=== PATIENT | female | born 1965 | race Caucasian/White ===

== ENCOUNTER 2019-02-24 11:57 | Emergency (ER) | payer SELFPAY ==
[2019-02-24] MEDS ORDERED: HYDROcodone/Acetaminophen 10/325 mg Tablet ONE (13:15)
== END 2019-02-24 13:30 | disposition home or self-care (01) ==
LOC: ERS 11:57
DX: K03.81 Cracked tooth (principal); F17.210 Nicotine dependence, cigarettes, uncomplicated; E05.00 Thyrotoxicosis with diffuse goiter without thyrotoxic crisis or storm; Z71.6 Tobacco abuse counseling
CPT/HCPCS: 99406

== ENCOUNTER 2019-10-21 15:58 | Inpatient (IN) | payer OTHER ==
--- NOTE | 2019-10-21 17:38 | RAD ---
Exam: Chest one view HISTORY:Cough. Dyspnea. Comparison: None. FINDINGS: Cardiac silhouette: Normal Aorta: Unremarkable Pulmonary vessels: Normal Costophrenic angles: Clear LUNGS: No masses or consolidation. Pneumothorax: None Osseous abnormalities: None IMPRESSION: No acute cardiopulmonary process.
--- NOTE | 2019-10-21 17:38 | RAD ---
Exam: 2V soft tissue neck HISTORY: Swelling to thyroid x3 days. FINDINGS: No prevertebral soft tissue swelling. Epiglottis has a normal caliber. Aerodigestive tract appears patent. IMPRESSION: Unremarkable 2 view soft tissue neck Transcribed Date/Time: 10/21/2019 5:49 PM
[2019-10-21 17:51] LABS: #Basophils 0.1 thou/uL (0.0-0.2); #Lymphocytes 2.6 thou/uL (1.20-3.40); #Monocytes 0.6 thou/uL (0.11-0.59); #Neutrophils 3.6 thou/uL (1.40-6.50); %Basophils 1.1 % (0.0-1.0); %Eosinophils 0.1 % (0.0-10.0); %Lymphocytes 37.6 % (21.0-51.0); %Monocytes 8.3 % (0.0-10.0); %Neutrophils 52.8 % (42.0-75.0); Hemoglobin 13.5 g/dL (12.0-16.0); Mean Corpuscular HGB CONC 34.2 g/dL (32.0-36.0); Mean Corpuscular Hemoglobin 28.4 pg (27.0-31.0); Mean Corpuscular Volume 83.1 fL (78.0-98.0); Mean Platelet Volume 8.1 fL (7.4-10.4); Platelet Count 238 thou/uL (130-400); Red Blood Cell (RBC) Count 4.74 mill/uL (4.20-5.40); White Blood Cell (WBC) Count 6.8 thou/uL (4.8-10.8)
[2019-10-21 18:18] LABS: ALT (SGPT) 15 U/L (8-55); AST (SGOT) 15 U/L (5-34); Alkaline Phosphatase 93 U/L (40-110); Anion Gap 10 mmol/L (10-20); BUN (Urea Nitrogen) 16 mg/dL (9.8-20.1); Bilirubin, Total 0.2 mg/dL (0.2-1.2); Calc. Creatinine Clearance 0 mL/min (70-130); Carbon Dioxide 25 mmol/L (22-29); Chloride 108 mmol/L (98-107); Estimated GFR-MDRD Greater than 90; Globulin 2.8 g/dL (2.4-3.5); Glucose 128 mg/dL (70-105); Protein, Total 6.8 g/dL (6.0-8.3); Sodium 139 mmol/L (136-145)
[2019-10-21 18:55] LABS: Free T4 (Free Thyroxine) 1.65 ng/dL (0.70-1.48)
[2019-10-21 20:58] LABS: Bilirubin Negative (Negative); Blood, Urine Negative (Negative); Clarity Clear (Clear); Glucose, Urine (Dipstick) Normal (Negative); Leukocyte Negative Leu/uL (Negative); Nitrite Negative (Negative); Protein, Urine (Dipstick) Negative (Neg-Trace); Urobilinogen Normal mg/dL (Less than 2)
[2019-10-21] MEDS ORDERED: Methimazole 10 MG TAB PO SCH (21:15)
[2019-10-21] MEDS ORDERED: Propranolol 60 MG TAB PO SCH (21:15)
[2019-10-21 21:56] LABS: Troponin I 0.019 ng/mL (< 0.028)
[2019-10-22 01:39] LABS: Troponin I Less than 0.010 ng/mL (< 0.028)
[2019-10-22] MEDS: Methimazole 5 MG TAB PO SCH ×2 (05:36→15:38)
[2019-10-22 07:37] VITALS: BMI 27.8
[2019-10-22] MEDS ORDERED: Acetaminophen 325 MG TAB PO PRN (08:39)
[2019-10-22] MEDS ORDERED: Lorazepam 0.5 MG TAB PO PRN (08:42)
[2019-10-22] MEDS ORDERED: Methimazole 10 MG TAB PO SCH (09:00)
[2019-10-22] MEDS ORDERED: Carvedilol 6.25 MG TAB PO SCH (09:00)
--- NOTE | 2019-10-22 10:27 | HP ---
CHIEF COMPLAINT: Shortness of breath, cough, and vomiting. HISTORY OF PRESENT ILLNESS: This patient is a 54-year-old female who was diagnosed with Graves disease about 2 years ago. She has been following with Dr. Mcclendon as an outpatient. She was originally placed on methimazole. She has had a number of associated issues with hyperthyroidism including weight loss, heat intolerance, diarrhea, and such. The patient was supposed to have radioactive iodine ablation. However, when the methimazole was discontinued, she was only able to tolerate it for a few days because she started feeling more "amped up" with some increased anxiety and felt like the thyroid was swelling and causing her more difficulties. Therefore, she went back on the methimazole under the direction of Dr. Mcclendon and the plans for radioactive iodine were aborted. The patient has been back on the methimazole for about a [id number]-i-half. Yesterday, the patient started having some increased cough which has been present for about 3 days total. She was having some production of clear sputum that was causing some irritation of her throat and her thyroid and that ultimately led to some vomiting and she says that her insisted that she come to the emergency department. In the ER, the patient received an additional dose of methimazole and 60 mg of propranolol, which did seem to improve her symptoms significantly. The patient's pulse initially was at 119. The patient states that she much prefers the propranolol over the Coreg that she takes on a more regular basis. She indicates that she does not like taking the Coreg because she believes it is causing some leg cramps. REVIEW OF SYSTEMS: As noted above, the patient has had some difficulties with sleep. She has had some lower extremity cramping, some diarrhea, palpitations, cough, and associated shortness of breath. She has had clear sputum production, nothing discolored. She does have some anxiety with a known history of anxiety disorder. She admits it is difficult to differentiate symptoms from hyperthyroidism and her anxiety at times. PAST MEDICAL HISTORY: History of the hyperthyroidism and Graves disease diagnosed in 2018 at which time she apparently had some thyroid storm and she had takotsubo cardiomyopathy in 2019. PAST SURGICAL HISTORY: , tonsillectomy and benign tumor removed between T3 and T4. FAMILY HISTORY: Father had some type of renal cancer, at 42. Her mother had congestive heart failure and at 62. 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 She smokes at least half a pack of cigarettes per day. Denies alcohol. Denies drugs. She is . She is a DNAR and her Ken Carrero would be her surrogate decision maker should that be necessary. ALLERGIES: PENICILLIN CAUSES ANAPHYLAXIS. MORPHINE, BUT SHE DOES NOT KNOW THE REACTION TO THAT. SHE WAS APPARENTLY IN AN AMBULANCE, AT SOME POINT RECEIVED MORPHINE AND WAS TOLD SHE SHOULD NEVER TAKE IT AGAIN. CURRENT MEDICATIONS: 1. Coreg 6.25 mg b.i.d. 2. Methimazole 20 mg b.i.d. 3. Ativan 0.5 mg b.i.d. PHYSICAL EXAMINATION: VITAL SIGNS: Most recent set of vitals, temperature is 98.0, pulse 71, respirations 20, O2 saturation 97% on room air, BP is 118/58. GENERAL: She is awake, alert, oriented, pleasant, cooperative. HEENT: PERRL, no OP lesions. NECK: Supple and symmetric. No lymphadenopathy, JVD, or carotid bruits. She does have an enlarged palpable nontender thyroid extending under both sternocleidomastoids with no specific palpable nodules. HEART: Regular rate and rhythm without murmurs, gallops, or rubs. LUNGS: Diminished throughout without wheezes or rales. ABDOMEN: Soft, nontender, and nondistended. Positive bowel sounds. No masses. No organomegaly. EXTREMITIES: No cyanosis, clubbing, or edema. PSYCHIATRIC: Normal affect and behavior. NEUROLOGIC: Moves all extremities spontaneously, has normal cognition. Cranial nerves appear to be fully intact. LABORATORY DATA: White count 6.8, hemoglobin 13.5, platelets 238. Sodium 139, potassium 4.0, chloride 108, CO2 of 25, BUN 16, creatinine 0.55, glucose 128, calcium 9.0. AST 15, ALT 15. Troponin is less than 0.01, 0.019 and less than 0.010. BNP is 24.2. TSH is 0.0025, free T3 is 6.25 and free T4 is 1.65. Urinalysis is negative. Chest x-ray negative and soft tissue x-ray of the neck is negative. EKG shows sinus rhythm. IMPRESSION AND PLAN: 1. Shortness of breath. Again, the patient has some thyromegaly. She also smokes too much and has had some cough, which seems more to be related to a smoker's cough which unfortunately irritates her throat with her goiter and that is likely the source of her symptoms. She also has a significant anxiety component. She was also a bit tachycardic on presentation. All of that appears to be resolved at this time. I am going to let her eat, give her morning Ativan, get her up and walking. 2. Graves disease with thyromegaly. Continue with the methimazole. We will likely give her a p.r.n. dose of propranolol to have should she become tachycardic like this again going forward. She is also encouraged to follow up with Dr. Mcclendon soon after her discharge. Job ID: [id number]
[2019-10-22 11:36] VITALS: BP 127/65; TEMP 98.8
--- NOTE | 2019-10-23 20:23 | DIS ---
DATE OF ADMISSION: 10/21/2019 DATE OF DISCHARGE: 10/22/2019 DISCHARGE DIAGNOSES: 1. Shortness of breath. 2. Nausea, vomiting. 3. Graves disease with hyperthyroidism. 4. Diffuse goiter related to Graves disease. 5. Tachycardia. 6. Tobacco abuse. HISTORY OF PRESENT ILLNESS: This patient is a 54-year-old female with a known history of Graves disease for the past 2 years, followed by Dr. Mcclendon. She has been dealing with hyperthyroid related symptoms during that time. She had been placed on suppressive methimazole and about 2 weeks prior to her presentation, had plans for radioactive iodine ablation and in preparation for that ,had methimazole discontinued. However, within about 3-4 days, the patient was having severe symptoms and was intolerant to the cessation; therefore, plans for the radioactive iodine were aborted and the patient was placed back on the methimazole about a week and a half prior to admission. She reported that she felt like she had some enlargement of her thyroid even during the brief time she was off the methimazole. This is causing her some irritation of the throat with cough, some associated nausea and vomiting when she was coughing and some shortness of breath at times. She says that her insisted that she come to the hospital for further evaluation. At the time of my exam, the patient's symptoms had substantially improved. She had received a dose of methimazole and a dose of propranolol in the emergency department. She had initially been tachycardic with a heart rate of 118, but this had improved substantially with the propranolol. HOSPITAL COURSE: The patient was allowed to have regular diet. She was up ambulating, remained on telemetry, had no significant arrhythmias and she was able to ambulate without difficulty. PHYSICAL EXAMINATION: Her exam was essentially benign. VITAL SIGNS: At time of discharge, temp 98.8, pulse 79, respirations 20, O2 saturation 97%, BP 127/65. GENERAL APPEARANCE: Age-appropriate female, in no distress. Awake and alert. NECK: Does reveal diffuse symmetric thyromegaly, which is generally nontender and there are no nodules. HEART: Regular rate and rhythm. LUNGS: Clear. ABDOMEN: Benign. EXTREMITIES: No cyanosis, clubbing, or edema. DISPOSITION: The patient is discharged to home. She will be on propranolol 10 mg b.i.d. p.r.n. for heart rate greater than 115. She will continue with her lorazepam, carvedilol, and methimazole as she had taken previously. ACTIVITIES: As tolerated. DIET: Heart healthy diet. FOLLOWUP: She is to follow up with Dr. Mcclendon and Dr. Carrero who is her primary care provider and she can return to the hospital should she have any problems prior to that time. Time spent in discharge activities was 31 minutes. Job ID: [id number] [facility]
== END 2019-10-22 17:08 | disposition home or self-care (01) | DRG 645 ==
LOC: ERS 15:58 → 2NO 23:19
PROVIDERS: ADMIT Internal Medicine; ATTEND Internal Medicine
DX: E05.01 Thyrotoxicosis with diffuse goiter with thyrotoxic crisis or storm (principal); E01.0 Iodine-deficiency related diffuse (endemic) goiter; F17.200 Nicotine dependence, unspecified, uncomplicated; R00.0 Tachycardia, unspecified
CPT/HCPCS: 36415; 70360; 71045; 80053; 81003; 83880; 84439; 84443; 84481; 84484; 85025; 93005; 96360; 96361

== ENCOUNTER 2019-10-30 13:13 | Outpatient (CLI) | payer OTHER ==
[~2019-10-30 13:13] MED LIST: Iopamidol-370 76% 500 ML 1 ML ONE
--- NOTE | 2019-10-30 15:01 | CT ---
CT NECK SOFT TISSUES WITH CONTRAST: DATE: 10/30/2019. HISTORY: A 54-year-old female with hyperthyroidism. COMPARISON: None. FINDINGS: The thyroid gland is diffusely very enlarged by a large number of nodules, many of them with low atte nuation, others with mixed attenuation, and others with relatively high attenuation, throughout the l eft lobe, right lobe, and isthmus. The pyramidal lobe is also enlarged. No cervical lymphadenopathy. The enlarged thyroid gland laterally displaces the bilateral common car otid arteries and internal jugular veins. There is medialization of the upper portion of the right i nternal carotid artery into the right retropharyngeal space. No other abnormality is identified involving the bilateral carotid, submandibular, retropharyngeal, p arapharyngeal, perivertebral, railroad repairer, or posterior cervical spaces. There is an approximately 1. 2 x 0.9 x 0.7 cm enhancing nodule in the superior aspect of the superficial lobe of the left parotid gland. This is nonspecific, but probably represents a mildly enlarged intraparotid lymph node. The larynx is unremarkable. Lingual tonsil is diffusely hyperplastic. High-grade degenerative disk disea se isolated to the C6-7 level. High-grade left facet DJD at C7-T1 and T1-2. IMPRESSION: Thyromegaly due to multinodular goiter, with a large number of thyroid nodules. POS: GIANFRANCO
== END 2019-10-30 13:14 | disposition home or self-care (01) ==
LOC: BICCT 13:13
PROVIDERS: ATTEND Student in an Organized Health Care Education/Training Program
DX: E05.90 Thyrotoxicosis, unspecified without thyrotoxic crisis or storm (principal); E04.2 Nontoxic multinodular goiter
CPT/HCPCS: 70491

== ENCOUNTER 2019-11-24 08:44 | Observation (INO) | payer OTHER ==
[2019-11-23 09:02] VITALS: BMI 25.7
[2019-11-24] MEDS ORDERED: Rocuronium Bromide 10 MG/ML (10ML VIAL) ONE (09:37)
[2019-11-24] MEDS ORDERED: Dexamethasone 20 MG/5 ML VIAL ONE (09:37)
[2019-11-24] MEDS ORDERED: Lidocaine 1% PF 5 ML VIAL ONE (09:37)
[2019-11-24] MEDS ORDERED: PHENYLEPHRINE-NS 100 MCG/ML 10 ML SYRINGE ONE (09:37)
[2019-11-24] MEDS ORDERED: Ondansetron PF 4 MG/2 ML Vial ONE (09:37)
[2019-11-24] MEDS ORDERED: PROPOFOL 200 MG/20 ML VIAL ONE (09:37)
[2019-11-24 09:53] LABS: Hemoglobin 13.5 g/dL (12.0-16.0); Mean Corpuscular HGB CONC 34.7 g/dL (32.0-36.0); Mean Corpuscular Hemoglobin 28.9 pg (27.0-31.0); Mean Corpuscular Volume 83.3 fL (78.0-98.0); Mean Platelet Volume 7.9 fL (7.4-10.4); Platelet Count 207 thou/uL (130-400); Red Blood Cell (RBC) Count 4.68 mill/uL (4.20-5.40); White Blood Cell (WBC) Count 5.8 thou/uL (4.8-10.8)
[2019-11-24 09:54] LABS: Anion Gap 12 mmol/L (10-20); BUN (Urea Nitrogen) 13 mg/dL (9.8-20.1); Calc. Creatinine Clearance 118 mL/min (70-130); Calcium 8.8 mg/dL (7.8-10.44); Carbon Dioxide 26 mmol/L (22-29); Chloride 106 mmol/L (98-107); Estimated GFR-MDRD Greater than 90; Glucose 97 mg/dL (70-105); Potassium 4.7 mmol/L (3.5-5.1); Sodium 139 mmol/L (136-145)
[2019-11-24] MEDS ORDERED: Lidocaine 1% w/Epinephrine 1:100K 20 ML VIAL ONE (11:29)
[2019-11-24] MEDS ORDERED: Fentanyl 100 MCG/2 ML VIAL ONE ×4 (11:33→14:37)
[2019-11-24] MEDS ORDERED: SUGAMMADEX SODIUM 200 MG/2 ML VIAL ONE (12:02)
[2019-11-24] MEDS ORDERED: HYDROmorphone 0.5 MG/0.5 ML SYRINGE ONE (12:02)
[2019-11-24] MEDS ORDERED: Bacitracin Zinc Ointment 30 gm TUBE ONE (13:35)
[2019-11-24] MEDS ORDERED: HYDROcodone/Acetaminophen 5/325 mg Tablet PO PRN (14:37)
[2019-11-24] MEDS ORDERED: HYDROmorphone 2 MG/ML VIAL ONE (14:37)
[2019-11-24] MEDS ORDERED: Ondansetron PF 4 MG/2 ML Vial SLOW IVP PRN (14:38)
[2019-11-24] MEDS: Lactated Ringer's 1,000 ML IV SCH ×3 (16:54→18:22)
[2019-11-24] MEDS: HYDROcodone/Acetaminophen 5/325 mg Tablet PO PRN ×2 (17:30→21:52)
[2019-11-24] MEDS: Carvedilol 6.25 MG TAB PO SCH (20:31)
[2019-11-24] MEDS ORDERED: Ketorolac Tromethamine 30 MG/ML VIAL IVP PRN (20:49)
[2019-11-24] MEDS ORDERED: Nicotine 14 MG PATCH TOP SCH (21:00)
[2019-11-25] MEDS: HYDROcodone/Acetaminophen 5/325 mg Tablet PO PRN ×2 (03:36→08:38)
[2019-11-25 08:25] VITALS: BP 123/75; TEMP 98.1
[2019-11-25] MEDS: Carvedilol 6.25 MG TAB PO SCH (08:37)
[2019-11-25] MEDS ORDERED: Calcitriol 0.25 MCG CAP PO SCH (09:00)
[2019-11-25] MEDS ORDERED: Calcium Carbonate 500 MG ChewTAB PO SCH (09:00)
--- NOTE | 2019-11-26 09:24 | OP ---
DATE OF PROCEDURE: 11/24/2019 PREOPERATIVE DIAGNOSIS: Toxic multinodular thyroid goiter. POSTOPERATIVE DIAGNOSIS: Toxic multinodular thyroid goiter. PROCEDURES PERFORMED: Total thyroidectomy. PERMIT: Procedures, benefits and risks including those of bleeding, infection, injury, anesthesia, allergic reaction, scarring or damage to surrounding blood vessels or nerves necessitating revision and repair, and alternatives were reviewed with the patient and family, who expressed understanding of the information. A consent form was signed, witnessed, and a paper copy of the consent form is available for review in the paper chart. INDICATIONS: This is a 54-year-old female patient, who presented to the clinic with a neck mass and with elevated thyroid hormone, suppressed TSH, and toxic multinodular goiter that was controlled near euthyroid level with methimazole in concordance with Dr. 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 The patient presented for operative intervention given her significant elevation of thyroid hormone despite treatment. ASSISTANTS: Tod Jolley MD. FINDINGS: Large multinodular thyroid goiter, parathyroid glands surrounding and posterior to the thyroid gland, and intact recurrent laryngeal nerves in the paratracheal area. DESCRIPTION OF OPERATION: The patient was brought to the operating room and laid supine on the operating room table. General endotracheal anesthesia was administered. The patient's neck was evaluated and a small neck crease was seen overlying the thyroid gland and was marked with a marking pen. 1% xylocaine with 1:100,000 epinephrine was injected roughly 5 mL. The patient was then prepped and draped in a sterile fashion. The premarked neck crease was incised with a 15 blade scalpel through the dermis and epidermis down to the subcutaneous tissue. Next, Bovie cautery was used to separate the subcutaneous fat down to the level of platysma and then incised the platysma bilaterally and equally in the midline. Next, subplatysmal flaps were raised superiorly to the level of the thyroid notch and inferiorly to the level of the sternal notch and laterally to the lateral aspect of the strap muscles. Next, the strap muscles were identified in the midline and with use of DeBakey forceps and cautery, the midline strap muscles were divided to the level of the thyroid notch and down to the level of the sternal notch. Next, the strap muscles were reflected laterally and the Mahneymarer retractor was placed to pull the skin edges apart and identified the thyroid gland. The thyroid gland was then evaluated and found to be significantly enlarged and with some minor inflammation and neovascularization around the thyroid gland. Attention was turned to the left superior pole, where the thyroid was divided. The thyroid was with blunt dissection from the trachea and the cricothyroid muscle and laterally from the strap muscles. The superior thyroid vessels were identified and suture ligated. Next, the thyroid was reflected laterally and the thyroid was tight. Subcapsular dissection was used to preserve the parathyroids and continue elevating the thyroid down to the level of the recurrent laryngeal nerve and the recurrent laryngeal nerve was identified. The thyroid was then continually from the surrounding tissue, as well as the trachea down to head's ligament, which was with combination of blunt dissection with a fine dissector or Santiago dissector down to the head's ligament, which was divided with Bovie cautery. Next, the thyroid bed was then inspected and any remaining blood vessels were suture ligated and/or controlled with bipolar cautery. The thyroid was then replaced in the thyroid bed. Next, attention was turned to the right side and the superior aspect of the thyroid was again evaluated and the superior vessels were then identified and suture ligated, as well as the superior aspect of the thyroid lobe was from surrounding tissue with blunt dissection and from the cricothyroid muscle. The right thyroid lobe was then reflected medially and subcapsular dissection was undertaken in order to elevate the thyroid from the thyroid bed. Eventually, the recurrent laryngeal nerve was identified and was taken care to preserve the parathyroid glands on the right side as well. The thyroid was elevated down to the level of trachea and head's ligament. Bovie cautery was used to remove the thyroid from the trachea. The left superior thyroid lobe was marked with silk suture and sent for permanent pathology. The wound bed was then irrigated copiously and a Valsalva was performed, and any bleeding was controlled with hemoclips, suture ligation or with Bovie cautery. Parathyroid glands were found to be intact and recurrent laryngeal nerve bilaterally was found to be intact. Drain was then placed in the thyroid bed and strap muscles were then reapproximated loosely with 3-0 Vicryl suture. Deep layer was then reapproximated with 3-0 Vicryl sutures and then continuous running 4-0 Prolene was then used to close the superficial layer. The drain was then attached to the above wound, was found to be holding suction, and no bleeding was identified. The patient was turned over to Anesthesia for emergence. There were no complications. No implants. Drain was placed and specimens were sent for permanent pathology. Job ID: [id number]
== END 2019-11-25 11:20 | disposition home or self-care (01) ==
LOC: SDC 08:44 → SURG A 14:09
PROVIDERS: ADMIT Student in an Organized Health Care Education/Training Program; ATTEND Student in an Organized Health Care Education/Training Program
PROC: 0GTK0ZZ Resection of Thyroid Gland, Open Approach (ICD-10-PCS; principal; 2019-11-25)
PROC: 0GBJ0ZZ Excision of Thyroid Gland Isthmus, Open Approach (ICD-10-PCS; 2019-11-25)
DX: E05.20 Thyrotoxicosis with toxic multinodular goiter without thyrotoxic crisis or storm (principal); F17.210 Nicotine dependence, cigarettes, uncomplicated; Z79.83 Long term (current) use of bisphosphonates; Z79.899 Other long term (current) drug therapy; Z88.0 Allergy status to penicillin; Z88.5 Allergy status to narcotic agent
CPT/HCPCS: 36415; 80048; 82310; 83970; 85027; 88307; 96361; 96374; G0378; J1100; J1170; J1885; J2001; J2405; J2704; J3010

== ENCOUNTER 2023-05-29 06:30 | Emergency (ER) | payer OTHER ==
[2023-05-29] MEDS ORDERED: methylPREDNISolone Sod Succ/PF 125 MG/2 ML VIAL ONE (07:45)
[2023-05-29 07:54] LABS: #Monocytes 0.5 thou/uL (0.11-0.59); #Neutrophils 12.4 thou/uL (1.40-6.50); %Basophils 0.3 % (0.0-1.0); %Eosinophils 0.2 % (0.0-10.0); %Lymphocytes 4.3 % (21.0-51.0); %Monocytes 3.3 % (0.0-10.0); %Neutrophils 91.6 % (42.0-75.0); Hemoglobin 13.1 g/dL (12.0-16.0); Mean Corpuscular HGB CONC 34.5 g/dL (32.0-36.0); Mean Corpuscular Hemoglobin 30.8 pg (27.0-31.0); Mean Corpuscular Volume 89.4 fl (78.0-98.0); Mean Platelet Volume 9.3 fL (7.4-10.4); Platelet Count 269 10x3/uL (130-400); RBC Distribution Width 13.7 % (11.5-14.5); Red Blood Cell (RBC) Count 4.25 mill/uL (4.20-5.40); White Blood Cell (WBC) Count 13.6 10x3/uL (4.8-10.8)
[2023-05-29] MEDS ORDERED: Ipratropium/Albuterol 3 ML NEB ONE (08:09)
[2023-05-29 08:15] LABS: ALT (SGPT) 18 U/L (8-55); AST (SGOT) 14 U/L (5-34); Albumin 4.3 g/dL (3.5-5.0); Alkaline Phosphatase 51 U/L (40-110); Anion Gap 15 mmol/L (10-20); BUN (Urea Nitrogen) 8 mg/dL (9.8-20.1); Bilirubin, Total 0.3 mg/dL (0.2-1.2); Calc. Creatinine Clearance 0 mL/min (70-130); Calcium 8.8 mg/dL (7.8-10.44); Carbon Dioxide 27 mmol/L (22-29); Chloride 95 mmol/L (98-107); Estimated GFR 101; Globulin 2.9 g/dL (2.4-3.5); Glucose 142 mg/dL (70-105); Potassium 3.9 mmol/L (3.5-5.1); Protein, Total 7.2 g/dL (6.0-8.3); Sodium 133 mmol/L (136-145)
== END 2023-05-29 12:18 | disposition home or self-care (01) ==
LOC: ERS 06:30
DX: J44.1 Chronic obstructive pulmonary disease with (acute) exacerbation (principal); D72.829 Elevated white blood cell count, unspecified; F17.210 Nicotine dependence, cigarettes, uncomplicated
CPT/HCPCS: 71045; 80053; 83880; 84484; 85025; 93005; 96374; J2930; J7620